=== PATIENT | male | born 1950 | race Caucasian/White ===

== ENCOUNTER 2019-11-06 23:33 | Emergency (ER) | payer OTHER ==
[~2019-11-06] VITALS: Ht 162.6 cm; Wt 70.8 kg
[2019-11-06 23:45] VITALS: Ht 162.6 cm; Wt 70.8 kg
[2019-11-07 02:46] VITALS: BP 134/65
== END 2019-11-07 03:31 | disposition home or self-care (01) ==
LOC: ED 23:33
DX: H10.9 Unspecified conjunctivitis (principal); I10 Essential (primary) hypertension; Z88.1 Allergy status to other antibiotic agents; Z85.46 Personal history of malignant neoplasm of prostate; Z85.830 Personal history of malignant neoplasm of bone
CPT/HCPCS: J1885